=== PATIENT | male | born 1985 | race American Indian/Alaskan Native ===

== ENCOUNTER 2018-03-06 16:59 | Emergency (ER) | payer OTHER ==
[2018-03-06 17:27] VITALS: BP 130/70; PULSE 85; RESP 20; TEMP 98.4; BMI 22.6
[2018-03-06] MEDS ORDERED: Tmp-Smz 800 mg-160 mg DS Tab PO STA (17:33)
--- NOTE | 2018-03-06 17:42 | ED PDOC ---
Arrival/HPI - General Chief Complaint: Abnormal Skin Integrity Time Seen by Provider: 03/06/18 17:06 Historian: Patient - History of Present Illness Narrative History of Present Illness (Text): 03/06/18 17:55 32yr old male presents today with abscess to the left cheek. pt states he has been having on and off swelling of this area of his cheek for about one year. pt states this is the first time the area swelled so much. pt denies fever/ chills. denies trauma or injury. pt states he has same issue that comes and goes on the right cheek as well. pt states he goes to the [employer] for his [place]. pt c/o slight pain to abscess site. no other complaints. Past Medical History - Provider Review Nursing Documentation Reviewed: Yes - Travel History Have you recently traveled outside [place] w/in the past 3 mons?: No - Psychiatric Hx Depression: No Hx Emotional Abuse: No Hx Physical Abuse: No Hx Substance Use: No - Suicidal Assessment Feels Threatened In Home Enviroment: No Family/Social History - Physician Review Nursing Documentation Reviewed: Yes Family/Social History: Unknown Family HX Smoking Status: Heavy Smoker > 10 Cigarettes Daily Hx Alcohol Use: Yes (Drank tonight) Frequency of alcohol use: Few days per week Hx Substance Use: No Hx Substance Use Treatment: No Allergies/Home Meds Allergies/Adverse Reactions: Allergies No Known Allergies Allergy (Verified 03/06/18 17:19) Review of Systems - Review of Systems Constitutional: absent: Fatigue, Fevers Respiratory: absent: SOB, Cough Cardiovascular: absent: Chest Pain, Palpitations Gastrointestinal: absent: Abdominal Pain, Nausea, Vomiting Musculoskeletal: absent: Arthralgias Skin: Abscess Neurological: absent: Headache, Dizziness Psychiatric: absent: Anxiety, Depression Physical Exam Vital Signs Reviewed: Yes Vital Signs Temp Pulse Resp BP Pulse Ox 03/06/18 17:17 98.4 F 85 20 130/70 97 Temperature: Afebrile Blood Pressure: Normal Pulse: Regular Respiratory Rate: Normal Appearance: Positive for: Well-Appearing, Non-Toxic, Comfortable Pain Distress: None Mental Status: Positive for: Alert and Oriented X 3 - Systems Exam Head: Present: Other (left cheek; there is a tanisha sized area of swelling and fluctuance with small central pustule noted. no surrounding erythema; minimal tenderness) Pupils: Present: PERRL Extroacular Muscles: Present: EOMI Mouth: Present: Moist Mucous Membranes Neck: Present: Normal Range of Motion Respiratory/Chest: Present: Clear to Auscultation, Good Air Exchange. No: Respiratory Distress, Accessory Muscle Use Cardiovascular: Present: Regular Rate and Rhythm, Normal S1, S2. No: Murmurs Neurological: Present: GCS=15, Speech Normal Skin: Present: Warm, Dry Psychiatric: Present: Alert, Oriented x 3 Medical Decision Making ED Course and Treatment: 03/06/18 18:10 Patient is nontoxic well-appearing in no distress. Vital signs are stable. keflex po Bactrim DS p.o. needle aspiration performed. PROCEDURE NOTE; LEFT CHEEK; USING STERILE TECHNIQUE; 0.5CC 1% LIDOCAINE INJECTED LOCALLY, ADEQUATE ANESTHESIA. AND 18GUAGE NEEDLE WAS INSERTED, 2CC OF PURULENT DISCHARGE REMOVED; PT TOLERATED PROCEDURE WELL. BACITRACIN AND DRESSING APPLIED. Patient was advised to use warm compresses frequently; pt was advised to f/u with plastic surgeon within the next 2 days. pt was advised to take medications as prescribed and return immediately if symptoms worsen persist or if new symptoms develop Patient verbalizes understanding of discharge instructions and need for immediate followup. all aspects of this case were discussed the attending of record. Impression: Abscess, face Motrin one tablet every 6 hours as needed for pain Keflex; 1 capsule 4 times daily x 7 days. Bactrim DS: One tablet twice daily x7 days Warm compresses and warm soaks frequently Follow up with the plastic surgeon within the next 2 days. Follow up with the primary care physician within the next 2 days. Return immediately if symptoms worsen persist or if new symptoms develop: High fevers, increasing pain, increasing redness, swelling or if any other concerning symptoms develop. 03/06/18 18:14 - Medication Orders Current Medication Orders: Discontinued Medications Cephalexin Monohydrate (Keflex) 500 mg PO STAT STA PRN Reason: Protocol Stop: 03/06/18 17:34 Last Admin: 03/06/18 18:03 Dose: 500 mg Trimethoprim/Sulfamethoxazole (Bactrim Ds Tab) 1 tab PO STAT STA PRN Reason: Protocol Stop: 03/06/18 17:34 Last Admin: 03/06/18 18:02 Dose: 1 tab Disposition/Present on Arrival - Present on Arrival Any Indicators Present on Arrival: No History of DVT/PE: No History of Uncontrolled Diabetes: No Urinary Catheter: No History of Decub. Ulcer: No History Surgical Site Infection Following: None - Disposition Have Diagnosis and Disposition been Completed?: Yes Diagnosis: Abscess of face Disposition: HOME/ ROUTINE Disposition Time: 17:36 Patient Plan: Discharge Patient Problems: Current Active Problems Problem Status Onset Abscess of face Acute Condition: GOOD Discharge Instructions (ExitCare): Boil (DC) Additional Instructions: Motrin one tablet every 6 hours as needed for pain Keflex; 1 capsule 4 times daily x 7 days. Bactrim DS: One tablet twice daily x7 days Warm compresses and warm soaks frequently Follow up with the plastic surgeon within the next 2 days. Follow up with the primary care physician within the next 2 days. Return immediately if symptoms worsen persist or if new symptoms develop: High fevers, increasing pain, increasing redness, swelling or if any other concerning symptoms develop. Prescriptions: Cephalexin [Keflex] 500 mg PO QID #28 capsule Ibuprofen [Motrin] 600 mg PO Q6H PRN #20 tab PRN Reason: pain/fever reduction Sulfamethoxazole/Trimethoprim [Bactrim DS 800 mg-160 mg] 1 tab PO BID #14 tab Referrals: Leatha Rosales MD [Staff Provider] - Follow up with primary Carlos Nava MD [Staff Provider] - Follow up with primary [facility] [Outside] - Follow up with primary Teri Cho MD [Medical Doctor] - Follow up with primary Forms: [facility] ([employer]), WORK NOTE
[2018-03-06 19:34] VITALS: O2SAT 98
== END 2018-03-06 19:33 | disposition home or self-care (01) ==
LOC: ED 16:59
DX: L02.01 Cutaneous abscess of face (principal); F17.210 Nicotine dependence, cigarettes, uncomplicated